=== PATIENT | male | born 1950 | race Caucasian/White ===

== ENCOUNTER → 2018-07-29 14:42 | Outpatient (CLI) | payer MEDICARE, SELFPAY | PROVIDERS: PCP Family Medicine; Visit Provider Family Medicine | DX: E66.9 Obesity, unspecified (principal); H34.8122 Central retinal vein occlusion, left eye, stable; I10 Essential (primary) hypertension; H35.052 Retinal neovascularization, unspecified, left eye; G47.33 Obstructive sleep apnea (adult) (pediatric) | CPT/HCPCS: G0399 ==

== ENCOUNTER 2019-01-01 12:55 | Emergency (ER) | payer MEDICARE, SELFPAY ==
[2019-01-01 13:13] VITALS: BP 149/84; PULSE 83; RESP 20; TEMP 37; O2SAT 97; BMI 28.7
--- NOTE | 2019-01-01 13:16 | XR_ITS ---
XR chest 2V HISTORY: ITS.REASON: SOA ORDERING PHYSICIAN: Aleena Bear APRN PATIENT AGE: 68 years COMPARISON: None FINDINGS: The cardiomediastinal silhouette and pulmonary vascularity are within normal limits. The lungs are clear without infiltrates, suspicious nodules, or pleural effusions. There is an azygos fissure is normal variant No acute bony abnormalities. IMPRESSION: Negative chest, no acute finding
--- NOTE | 2019-01-01 13:53 | HMH.EDUTC ---
[facility] [place]: Bronchitis Disposition: Home, Self-Care Condition on Discharge: Good Instructions: Sinusitis (Alternative Therapy), Sinusitis, Acute Bronchitis, DI for Sinusitis, DI for Acute Bronchitis Additional Instructions: ? Start antibiotic today. Be sure to complete entire prescription even if feeling better ? Monitor temp. Tylenol every 4 hours as needed and / or ibuprofen every 6 hours as needed ( As long as your primary care physician has told you that it ok to take both. For fever/aches/pains ER if no less than 101 despite Tylenol or Motrin ? Humidifier/vaporizer or hot steamy shower ? Inhaler every 4-6 hours as needed like we discussed. If unsure how to use it, ask pharmacist to demonstrate how. Should help open airways and improve cough, wheezing, and shortness of breath ? Mucinex during the day for your cough and cough suppressant only at night. Be sure to drink lots of water. Insurance may not cover a prescriptions for mucinex. Might be cheaper to get 400mg tablets and take 2 tablet in the morning, mid-day and evening with lots of water. *Tessalon Perles will not cause drowsiness but use at bedtime to help stop cough so that you may get some rest. Follow up IMMEDIATELY for new or worsening of symptoms OR no noticeable improvement over the next 48-72 hours. 911 immediately for any life threatening symptoms such as chest pain or difficulty breathing Prescriptions: Albuterol Sulfate [Albuterol HFA Inhaler] 2 puffs IH Q6HP PRN #1 inh PRN Reason: Shortness Of Breath Or Wheezing Fluticasone Propionate [Flonase 50mcg nasal spray 16gm] 2 spr NS DAILY #1 bottle Azithromycin [Z-Tacos 250mg Tab] 250 mg PO UD DOSE PK #6 tab Referrals: Leodan Smith MD [Primary Care Provider] - As needed Medical Decision Making - Kwame Inquiry Pt receiving controlled substance: No Kwame was queried for this patient: No Vital Signs: 01/01/19 13:13 Temperature 98.6 F Temperature Source Oral Pulse Rate [Right Brachial] 83 Respiratory Rate 20 Blood Pressure [Left Arm] 149/84 H Blood Pressure Mean [Left Arm] 105 Blood Pressure Source [Left Arm] Automatic Cuff Blood Pressure Position [Left Arm] Sitting 02 Sat by Pulse Oximetry 97 Oxygen Delivery Method Room Air Orders (Tests/Meds): ED MEDICATIONS Discontinued Medications Generic Name Dose Route Start Last Admin Trade Name Onur PRN Reason Stop Dose Admin Albuterol/Ipratropium 3 ml 01/01/19 13:53 01/01/19 13:59 Duoneb 3ml Neb IH 01/01/19 13:54 3 ml ONCE ONE Administration Methylprednisolone Sodium Succinate 125 mg 01/01/19 13:53 01/01/19 13:59 Solu-Medrol 125mg/2ml Vial IM 01/01/19 13:54 125 mg ONCE ONE Administration - Radiology Data #1 Image(s): Chest Image Reviewed: Yes I have reviewed radiologist's interpretation IMPRESSION: Negative chest, no acute finding - Reevaluation(s) Time: 14:20 Reevaluation #1: Wheezing diminished after neb treatment Patient state that he is breathing much better [facility] [place] - General Stated complaint: SOA Time Seen by Provider: 01/01/19 13:54 Mode of Arrival: Family Vehicle Source of Information: Patient Limitations: No Limitations Description of Symptoms (Recalled from Triage Doc. by RN): C/O SOB. RECENTLY WENT TO [place] AND DIDNT TAKE HIS C PAP. ALSO C/O WHEEZING AND CHEST TIGHTNESS WITH PRODUCTIVE COUGH WITH GREEN SPUTUM HEENT Symptoms (Recalled from RN notes): No Resp Symptoms (Recalled from RN notes): Yes Skin Symptoms (Recalled from RN notes): No MS Symptoms (Recalled from RN notes): No Functional Status (Recalled from RN notes): N/A - History of Present Illness Provider Complaint: Patient state that he recently went to [place] and did not take his Cpap machine States that he started using it again after he got back and about 3 days ago he noticed he was having wheezing, feeling short of breath after coughing, nasal congestion and at times coughing up thick green m
--- NOTE | 2019-01-01 13:59 | ED_ITS ---
[facility] [place]ression: Bronchitis Disposition: Home, Self-Care Condition on Discharge: Good Instructions: Sinusitis (Alternative Therapy), Sinusitis, Acute Bronchitis, DI for Sinusitis, DI for Acute Bronchitis Additional Instructions: ? Start antibiotic today. Be sure to complete entire prescription even if feeling better ? Monitor temp. Tylenol every 4 hours as needed and / or ibuprofen every 6 hours as needed ( As long as your primary care physician has told you that it ok to take both. For fever/aches/pains ER if no less than 101 despite Tylenol or Motrin ? Humidifier/vaporizer or hot steamy shower ? Inhaler every 4-6 hours as needed like we discussed. If unsure how to use it, ask pharmacist to demonstrate how. Should help open airways and improve cough, wheezing, and shortness of breath ? Mucinex during the day for your cough and cough suppressant only at night. Be sure to drink lots of water. Insurance may not cover a prescriptions for mucinex. Might be cheaper to get 400mg tablets and take 2 tablet in the morning, mid-day and evening with lots of water. *Tessalon Perles will not cause drowsiness but use at bedtime to help stop cough so that you may get some rest. Follow up IMMEDIATELY for new or worsening of symptoms OR no noticeable improvement over the next 48-72 hours. 911 immediately for any life threatening symptoms such as chest pain or difficulty breathing Prescriptions: Albuterol Sulfate [Albuterol HFA Inhaler] 2 puffs IH Q6HP PRN #1 inh PRN Reason: Shortness Of Breath Or Wheezing Fluticasone Propionate [Flonase 50mcg nasal spray 16gm] 2 spr NS DAILY #1 bottle Azithromycin [Z-Tacos 250mg Tab] 250 mg PO UD DOSE PK #6 tab Referrals: Leodan Smith MD [Primary Care Provider] - As needed Medical Decision Making - Kwame Inquiry Pt receiving controlled substance: No Kwame was queried for this patient: No Vital Signs: 01/01/19 13:13 Temperature 98.6 F Temperature Source Oral Pulse Rate [Right Brachial] 83 Respiratory Rate 20 Blood Pressure [Left Arm] 149/84 H Blood Pressure Mean [Left Arm] 105 Blood Pressure Source [Left Arm] Automatic Cuff Blood Pressure Position [Left Arm] Sitting 02 Sat by Pulse Oximetry 97 Oxygen Delivery Method Room Air Orders (Tests/Meds): ED MEDICATIONS Discontinued Medications Generic Name Dose Route Start Last Admin Trade Name Onur PRN Reason Stop Dose Admin Albuterol/Ipratropium 3 ml 01/01/19 13:53 01/01/19 13:59 Duoneb 3ml Neb IH 01/01/19 13:54 3 ml ONCE ONE Administration Methylprednisolone Sodium Succinate 125 mg 01/01/19 13:53 01/01/19 13:59 Solu-Medrol 125mg/2ml Vial IM 01/01/19 13:54 125 mg ONCE ONE Administration - Radiology Data #1 Image(s): Chest Image Reviewed: Yes I have reviewed radiologist's interpretation IMPRESSION: Negative chest, no acute finding - Reevaluation(s) Time: 14:20 Reevaluation #1: Wheezing diminished after neb treatment Patient state that he is breathing much better [facility] [place] - General Stated complaint: SOA Time Seen by Provider: 01/01/19 13:54 Mode of Arrival: Family Vehicle Source of Information: Patient Limitations: No Limitations Description of Symptoms (Recalled from Triage Doc. by RN): C/O SOB. RECENTLY WENT TO [place] AND DIDNT TAKE HIS
[2019-01-01 14:26] VITALS: BP 149/84; PULSE 83; RESP 20; TEMP 37; O2SAT 97
== END 2019-01-01 14:27 | disposition home or self-care (01) ==
PROVIDERS: Emergency Provider Nurse Practitioner; PCP Family Medicine
DX: J20.9 Acute bronchitis, unspecified (principal); E78.5 Hyperlipidemia, unspecified; E11.9 Type 2 diabetes mellitus without complications; Z79.84 Long term (current) use of oral hypoglycemic drugs
CPT/HCPCS: G0463; 71046; 96372; 99202

== ENCOUNTER → 2019-12-19 11:44 | Outpatient (CLI) | payer MEDICARE, SELFPAY ==
--- NOTE | 2019-12-19 12:03 | XR_ITS ---
PROCEDURE: XR CHEST AP CLINICAL HISTORY: COVID COMPARISON: Chest from 01/01/2019 FINDINGS: The cardiomediastinal silhouette and pulmonary vascularity are within normal limits. The lungs are clear without infiltrates, suspicious nodules, or pleural effusions. Again noted is an azygos lobe a normal variation. No acute bony abnormalities. IMPRESSION: No acute findings. Dictated by: Dr. Lencho Celis MD 12/19/2019 12:[address] Lencho Celis MD in [place] 12/19/2019 12:45
[2019-12-19 14:13] LABS: Adenovirus,PCR Not Detected (NotDetected); Bordetella Pertussis Not Detected (NotDetected); Chlamydophila Pneumoniae, PCR Not Detected (NotDetected); Coronavirus 229E Not Detected (NotDetected); Coronavirus NL63 Not Detected (NotDetected); Coronavirus OC43 Not Detected (NotDetected); Coronovirus HKU1,PCR Not Detected (NotDetected); Human Metapneumovirus Not Detected (NotDetected); Influenza A, PCR Not Detected (NotDetected); Influenza AH1, 2009 Not Detected (NotDetected); Influenza AH1, PCR Not Detected (NotDetected); Influenza AH3,PCR Not Detected (NotDetected); Influenza B, PCR Not Detected (NotDetected); Mycoplasma Pneumoniae, PCR Not Detected (NotDetected); Parainfluenza 1, PCR Not Detected (NotDetected); Parainfluenza 2, PCR Not Detected (NotDetected); Parainfluenza 3, PCR Not Detected (NotDetected); Parainfluenza 4, PCR Not Detected (NotDetected); Respiratory Syncytial Virus Not Detected (NotDetected); Rhinovirus/Enterovirus Not Detected (NotDetected)
[2019-12-19 14:56] LABS: Basophils # 0.1 K/mm3 (0-0.2); Basophils % 1.6 % (0.1-2.0); Eosinophils # 0.6 K/mm3 (0.0-0.4); Eosinophils % 10.4 % (0.1-12.0); Hemoglobin 14.3 g/dL (14.1-18.0); Lymphocytes # 1.3 K/mm3 (0.7-4.5); Lymphocytes % 21.9 % (10-50); Mean Corpuscular HGB Conc 33.2 g/dL (31.8-35.4); Mean Corpuscular Hemoglobin 30.5 pg (27.0-31.2); Mean Corpuscular Volume 91.9 fl (80-94); Monocytes # 0.5 K/mm3 (0.1-1.0); Monocytes % 8.2 % (1.7-9.3); Neutrophils # 3.4 K/mm3 (1.8-7.8); Neutrophils % 57.9 % (37.0-80.0); Platelet Count 226 K/mm3 (142-424); Red Blood Count 4.68 M/mm3 (4.60-6.20); Red Cell Distribution Width 14.1 % (11.5-17.5); White Blood Count 5.8 K/mm3 (4.8-10.8)
[2019-12-20 16:10] LABS: Covid-19 Nasal PCR Sendout Lex NOT DETECTED
--- NOTE | 2019-12-20 17:33 | PC.NURSE ---
dr. barreto notified of negative covid-19 test results, will notify pt
== END ==
PROVIDERS: PCP Family Medicine; Visit Provider Family Medicine
DX: Z03.818 Encounter for observation for suspected exposure to other biological agents ruled out (principal)
CPT/HCPCS: 71045; 85025; 87486; 87581; 87633; 87798; U0004

== ENCOUNTER 2019-12-23 13:07 | Emergency (ER) | payer MEDICARE, SELFPAY ==
[2019-12-23 13:28] VITALS: BMI 28.7
[2019-12-23 13:29] VITALS: BP 168/85; PULSE 74; RESP 18; TEMP 37; O2SAT 96; BMI 28.7
--- NOTE | 2019-12-23 13:29 | XR_ITS ---
PROCEDURE: XR CHEST 2V Patient Age:69Y CLINICAL HISTORY: COUGH wheezing. Dyspnea. COMPARISON: 12/19/2019 and 01/01/2019 PA and lateral chest the the the the FINDINGS: PA and lateral chest performed and compared to 01/01/2019 CXR PA and lateral. Lungs are well expanded and clear with nothing definitely acute.. Perhaps mild hyperexpansion with slight flattening the diaphragm on lateral view noted.. However no, no significant change compared to December 2018 CXR. The heart is normal in size with normal pulmonary vascularity. The paulo and mediastinal structures satisfactory azygos lobe again noted... No pleural effusion; no pneumothorax evident No acute bony abnormalities. IMPRESSION: No acute findings. Stable chest,. Lungs clear with perhaps minimal hyperexpansion Dictated by: Beni Hernandez MD 12/23/2019 15:42 Electronically signed by Beni Hernandez MD in [place] 12/23/2019 15:42
--- NOTE | 2019-12-23 13:59 | HMH.EDUTC ---
[facility] [place] Clinical Impression: Acute bronchitis Qualifiers: Bronchitis organism: unspecified organism Qualified Code(s): J20.9 - Acute bronchitis, unspecified Disposition: Home, Self-Care Condition on Discharge: Good Instructions: Acute Bronchitis, DI for Acute Bronchitis Additional Instructions: Drink plenty of fluids. Take tylenol or ibuprofen for pain or fever. Take the medications as directed. Follow up with your regular doctor. GO TO THE ER FOR ANY WORSENING SYMPTOMS Don't start the oral steroids until tomorrow, since you had the shot here today. Prescriptions: Promethazine/Dextromethorphan [Promethazine-Dm Syrup] 5 ml PO Q6HP PRN #240 syrup PRN Reason: Cough Transmission Status: [facility] methylPREDNISolone [Medrol] 4 mg PO DIRECTED 6 Days #21 tab.ds.pk Transmission Status: [facility] Benzonatate [Tessalon Perle 100mg Cap] 100 mg PO TIDP PRN #30 cap PRN Reason: Cough Transmission Status: [facility] Azithromycin [Z-Tacos 250mg Tab*] 250 mg PO UD DOSE PK #6 tab Transmission Status: Received by [id number] Referrals: Leodan Smith MD [Primary Care Provider] - Time of Disposition: 14:09 Medical Decision Making - Medical Records Medical records reviewed: No: I reviewed the patient's medical records. - Kwame Inquiry Pt receiving controlled substance: No Vital Signs: 12/23/19 13:29 12/23/19 14:24 Temperature 98.6 F 98.6 F Temperature Source Oral Pulse Rate 74 Pulse Rate [Right Brachial] 74 Respiratory Rate 18 18 Blood Pressure 168/85 H Blood Pressure [Right Arm] 168/85 H Blood Pressure Mean [Right Arm] 112 Blood Pressure Source [Right Arm] Automatic Cuff Blood Pressure Position [Right Arm] Sitting 02 Sat by Pulse Oximetry 96 Oxygen Delivery Method Room Air - Lab Data Lab Results 12/23/19 13:55: POC Glucose 116 H Orders (Tests/Meds): ED MEDICATIONS Discontinued Medications Generic Name Dose Route Start Last Admin Trade Name Freq PRN Reason Stop Dose Admin Ceftriaxone Sodium 1 gm 12/23/19 13:59 12/23/19 14:15 Rocephin 1gm Vial IM 05/23/20 14:00 1 gm ONCE ONE Administration Protocol Lidocaine HCl 0 ml 12/23/19 13:59 12/23/19 14:15 Lidocaine 1% 10ml Mdv IM 12/23/19 14:00 2.1 ml ONCE ONE Administration Methylprednisolone Sodium Succinate 125 mg 12/23/19 13:59 12/23/19 14:15 Solu-Medrol 125mg/2ml Vial IM 12/23/19 14:00 125 mg ONCE ONE Administration - Radiology Data #1 Image(s): Chest Image Reviewed: Yes I reviewed the patient's radiology image, Yes I have reviewed radiologist's interpretation Preliminary Findings: No Infiltrates Seen PROCEDURE: XR CHEST 2V Referring Doctor:NATY Patient Age:69Y CLINICAL HISTORY: COUGH wheezing. Dyspnea. COMPARISON: 12/19/2019 and 01/01/2019 PA and lateral chest the the the the FINDINGS: PA and lateral chest performed and compared to 01/01/2019 CXR PA and lateral. Lungs are well expanded and clear with nothing definitely acute.. Perhaps mild hyperexpansion with slight flattening the diaphragm on lateral view noted.. However no, no significant change compared to December 2018 CXR. The heart is normal in size with normal pulmonary vascularity. The paulo and mediastinal structures satisfactory azygos lobe again noted... No pleural effusion; no pneumothorax evident No acute bony abnormalities. IMPRESSION: No acute findings. Stable chest,. Lungs clear with perhaps minimal hyperexpansion Dictated by: Beni Hernandez MD 12/23/2019 15:42 Electronically signed by Beni Hernandez MD in [place] 12/23/2019 15:42 [facility] [place] - General Stated complaint: had covid test negative 12/18 cough ,little fever Time Seen by Provider: 12/23/19 13:30 Mode of Arrival: Ambulatory Source of Information: Patient Limitations: No Limitations Description of Symptoms
[2019-12-23 14:02] LABS: POC Glucose,Bedside 116 (70-110)
[2019-12-23 14:24] VITALS: BP 168/85; PULSE 74; RESP 18; TEMP 37; O2SAT 96
== END 2019-12-23 14:28 | disposition home or self-care (01) ==
PROVIDERS: Emergency Provider Nurse Practitioner Family; PCP Family Medicine
DX: J20.9 Acute bronchitis, unspecified (principal); E11.9 Type 2 diabetes mellitus without complications; Z79.84 Long term (current) use of oral hypoglycemic drugs; E78.5 Hyperlipidemia, unspecified; E03.9 Hypothyroidism, unspecified
CPT/HCPCS: 71046; 82962; 96372; 99202

== ENCOUNTER → 2020-02-13 10:01 | Outpatient (CLI) | payer MEDICARE, SELFPAY ==
[2020-02-13 10:45] VITALS: PULSE 64; PULSE 66
== END ==
PROVIDERS: PCP Family Medicine; Visit Provider Family Medicine
DX: R06.02 Shortness of breath (principal)
CPT/HCPCS: 94060; 94640

== ENCOUNTER 2021-04-23 15:39 | Emergency (ER) | payer MEDICARE, SELFPAY ==
[2021-04-23 16:06] VITALS: BP 126/79; PULSE 77; RESP 19; TEMP 36.6; O2SAT 98; BMI 31.0
--- NOTE | 2021-04-23 16:40 | HMH.EDUTC ---
[facility] [place] Disposition Clinical Impression: Stye Qualifiers: Laterality: right Eyelid: lower Qualified Code(s): H00.012 - Hordeolum externum right lower eyelid Disposition: Home, Self-Care Condition on Discharge: Good Instructions: Hordeolum, DI for Hordeolum, Doxycycline Additional Instructions: Warm compresses 3-4 times daily on area on eye Take antibiotics as prescribed Follow up with Dr White at [facility] if no improvement or any worsening of symptoms Return if needed Straight to ER if any life threatening symptoms Prescriptions: Doxycycline Monohydrate [Doxycycline [place] 100mg Tab] 100 mg PO BID 7 Days #14 tab Transmission Status: Pending to [facility] Referrals: Leodan Smith MD [Primary Care Provider] - [facility] [Other] Time of Disposition: 17:10 Medical Decision Making - Kwame Inquiry Pt receiving controlled substance: No Kwame was queried for this patient: No Vital Signs: 04/23/21 16:06 Temperature 97.8 F Temperature Source Oral Pulse Rate [Left] 77 Respiratory Rate 19 Blood Pressure [Right Arm] 126/79 Blood Pressure Mean [Right Arm] 94 02 Sat by Pulse Oximetry 98 - Physician Consults Physician Consulted: Dr Jorje White Time: 17:11 Reason -: Opthalmology Eval/Care Comment/Response: Spoke with Dr White about patient and described finding with mild swelling and redness in jaw area and he recommended starting him on Doxy 100mg BID warm compresses and have him follow up in the clinic if no improvement or any worsening of symptoms Medical Decision Narrative: Patient had redness and small area on right lower eyelid area like that seen with stye however patient had some redness with mild redness on cheek area [facility] [place] HPI - General Stated complaint: poss eye inf Time Seen by Provider: 04/23/21 16:40 Mode of Arrival: Ambulatory Source of Information: Patient Limitations: No Limitations Description of Symptoms (Recalled from Triage Doc. by RN): pt c/o R eye pain since yesterday. he believes it is pink eye. HEENT Symptoms (Recalled from RN notes): Yes (R eye pain) Resp Symptoms (Recalled from RN notes): No Skin Symptoms (Recalled from RN notes): No MS Symptoms (Recalled from RN notes): No Functional Status (Recalled from RN notes): na - History of Present Illness Provider Complaint: Patient state that for the last couple of day he has been having redness and itching to right lower eye lid States that family looked at it and wasnt sure if it was a stye or pink eye States that area is sore and feels itchy at times States that this evening it wasnt any better and he wasnt sure if he needed to come here or the eye doctor so he came in - Related Data Home Medications Medication Instructions Recorded Confirmed metformin 500 mg tablet,extended 500 mg PO DAILY 90 Days #90 02/14/18 04/10/21 release 24 hr rosuvastatin 10 mg tablet 10 mg PO HS 90 Days #90 02/14/18 04/10/21 levothyroxine 100 mcg tablet 100 mcg PO DAILY #90 tab 01/31/19 04/10/21 umeclidinium 62.5 mcg-vilanterol ea INHALATION 01/09/21 04/10/21 25 mcg/actuation powdr for inhalation Previous Rx's Medication Instructions Recorded Doxycycline Monohydrate 100 mg PO BID 7 Days #14 tab 04/23/21 [Doxycycline Edmonson 100mg Tab] Allergies Allergy/AdvReac Type Severity Reaction Status Date / Time No Known Allergies Allergy Verified 04/10/21 08:10 - Worker's Comp Is this a Worker's Comp case?: No [facility] History - Hepatitis A Screen Drug use history?: No High risk sexual behaviors?: No History of sexually transmitted infection?: No Currently employed?: No Childcare worker?: No Do you have indoor plumbing?: Yes Do you have electricity?: Yes Attestation statement:: This patient has been screened for Hepatitis A risk factors. I have reviewed the patient's past medical history: Yes Medical History: Reports:: Diabetes Mellitus Type 2, Hyperlipidemia Other Medical History: Report
[2021-04-23 17:13] VITALS: BP 126/79; PULSE 77; RESP 19; TEMP 36.6
== END 2021-04-23 17:14 | disposition home or self-care (01) ==
PROVIDERS: Emergency Provider Nurse Practitioner; PCP Family Medicine
DX: H00.012 Hordeolum externum right lower eyelid (principal); E11.9 Type 2 diabetes mellitus without complications; E78.5 Hyperlipidemia, unspecified; E03.9 Hypothyroidism, unspecified; Z79.899 Other long term (current) drug therapy
CPT/HCPCS: G0463; 99202

== ENCOUNTER 2021-06-10 12:04 | Emergency (ER) | payer MEDICARE, SELFPAY ==
[2021-06-10 12:04] VITALS: BP 138/78; PULSE 91; RESP 19; TEMP 37.7; O2SAT 98; BMI 31.8
[2021-06-10 13:09] LABS: Adenovirus,PCR Not Detected (NotDetected); Bordetella Pertussis Not Detected (NotDetected); Chlamydophila Pneumoniae, PCR Not Detected (NotDetected); Coronavirus 19, PCR Not Detected (NotDetected); Coronavirus 229E Not Detected (NotDetected); Coronavirus NL63 Not Detected (NotDetected); Coronavirus OC43 Not Detected (NotDetected); Coronovirus HKU1,PCR Not Detected (NotDetected); Human Metapneumovirus Not Detected (NotDetected); Influenza A, PCR Not Detected (NotDetected); Influenza AH1, 2009 Not Detected (NotDetected); Influenza AH1, PCR Not Detected (NotDetected); Influenza AH3,PCR Not Detected (NotDetected); Influenza B, PCR Not Detected (NotDetected); Mycoplasma Pneumoniae, PCR Not Detected (NotDetected); Parainfluenza 1, PCR Not Detected (NotDetected); Parainfluenza 2, PCR Not Detected (NotDetected); Parainfluenza 3, PCR Not Detected (NotDetected); Parainfluenza 4, PCR Not Detected (NotDetected); Respiratory Syncytial Virus Not Detected (NotDetected); Rhinovirus/Enterovirus Not Detected (NotDetected)
--- NOTE | 2021-06-10 13:52 | HMH.EDUTC ---
[facility] [place]: Viral syndrome Disposition: Home, Self-Care Condition on Discharge: Good Instructions: DI for Viral Syndrome, DI for COVID-19 (Suspected or Confirmed ), Preventing the Spread of Coronavirus Discharge Instructions Additional Instructions: *Monitor Temp, Over the counter Motrin or Tylenol as directed/as needed Tylenol every 4 hours and Motrin every 6 hours (as long as your family doctor has told you that you can take it) for fever or pain. and straight to ER if unable to lower temp less than 101.0 after medication given *Warm salt water gargles may help to soothe the throat *Throat Lozenges *Warm fluids like tea with honey may help to soothe the throat *Sleep elevated *Humidifier/Vaporizer Follow up IMMEDIATELY for new or worsening symptoms or no Noticeable improvement over the next 48-72 hours. 911 for difficulty breathing or swallowing You were tested for today for COVID19 your test result should be back in the next 24-48 hours, you may check your results on the [facility] portal if you having trouble logging on or checking your result you may call You was given a handout with instructions for Self Quarantine and Self isolation for while you wait on test results and what to do if they are positive If you are positive the Health Dept will be contacting you also Make sure to take your Vitamins Vit. C Vit D and Zinc if you can take them Prescriptions: Benzonatate [Benzonatate 100mg cap] 100 mg PO TID PRN #30 cap PRN Reason: Cough Transmission Status: Pending to [facility] Ondansetron [Zofran 4mg ODT] 4 mg PO TIDP PRN #12 tab PRN Reason: Nausea Transmission Status: Pending to [facility] Referrals: Leodan Smith MD [Primary Care Provider] - As needed Time of Disposition: 14:07 Medical Decision Making - Kwame Inquiry Pt receiving controlled substance: No Kwame was queried for this patient: No Vital Signs: 06/10/21 12:04 Temperature 99.9 F H Temperature Source Oral Pulse Rate [Left Radial] 91 H Respiratory Rate 19 Blood Pressure [Right Arm] 138/78 Blood Pressure Mean [Right Arm] 98 Blood Pressure Source [Right Arm] Automatic Cuff Blood Pressure Position [Right Arm] Sitting 02 Sat by Pulse Oximetry 98 Oxygen Delivery Method Room Air Orders (Tests/Meds): ORDERS Category Date Time Status Full Resp Panel w/COVID ([facility]) Routine Lab 06/10/21 12:50 [place] [facility] [place] - General Stated complaint: fever, vomiting, congestion Time Seen by Provider: 06/10/21 13:52 Mode of Arrival: Ambulatory Source of Information: Patient Limitations: No Limitations Description of Symptoms (Recalled from Triage Doc. by RN): c/o fever, sinus drainage, upset stomach, chills and body aches since yesterday HEENT Symptoms (Recalled from RN notes): Yes Resp Symptoms (Recalled from RN notes): No Skin Symptoms (Recalled from RN notes): No MS Symptoms (Recalled from RN notes): No Functional Status (Recalled from RN notes): na - History of Present Illness Provider Complaint: Patient states that he started feeling bad yesterday States that he was having body aches, chills, nausea, cough and runny nose, cough and over all not feeling well States that he was concerned with flu or COVID so he came in to get tested - Related Data Home Medications Medication Instructions Recorded Confirmed metformin 500 mg tablet,extended 500 mg PO DAILY 90 Days #90 02/14/18 04/10/21 release 24 hr rosuvastatin 10 mg tablet 10 mg PO HS 90 Days #90 02/14/18 04/10/21 levothyroxine 100 mcg tablet 100 mcg PO DAILY #90 tab 01/31/19 04/10/21 umeclidinium 62.5 mcg-vilanterol ea INHALATION 01/09/21 04/10/21 25 mcg/actuation powdr for inhalation Previous Rx's Medication Instructions Recorded Doxycycline Monohydrate 100 mg PO BID 7 Days #14 tab 04/23/21 [Doxycycline [place] 100mg Tab] Benzonatate [Benzonatate 100mg 100 mg PO TID PRN #30 cap 06/10/21 cap] O
[2021-06-10 14:12] VITALS: BP 138/78; PULSE 91; RESP 19; TEMP 37.7; O2SAT 98
== END 2021-06-10 14:17 | disposition home or self-care (01) ==
PROVIDERS: Emergency Provider Nurse Practitioner; PCP Family Medicine
DX: B34.9 Viral infection, unspecified (principal); E03.9 Hypothyroidism, unspecified; E11.9 Type 2 diabetes mellitus without complications; E78.5 Hyperlipidemia, unspecified; Z79.899 Other long term (current) drug therapy
CPT/HCPCS: G0463; 87581; 87632; 87798; 99202; C9803; U0003; U0005

== ENCOUNTER → 2021-07-10 09:59 | Outpatient (CLI) | payer MEDICARE, SELFPAY ==
[2021-07-10 10:59] LABS: Anion Gap 12.6 mEq/L (5-15); Blood Urea Nitrogen 17 mg/dl (9-20); Calcium 9.5 mg/dl (8.4-10.2); Carbon Dioxide 28 mmol/L (22.0-30.0); Chloride 104 mmol/L (98-107); Estimated Glomerular Filt Rate 83 ml/min (>60); GFR (African American) 101 ML/MIN (>60); Glucose 109 mg/dl (74-100); Potassium 4.6 mmoL/L (3.5-5.1); Sodium 140 mmol/L (136-145)
[2021-07-10 19:47] LABS: Hemoglobin A1C 5.7 % (4.0-6.0)
== END ==
PROVIDERS: Visit Provider Family Medicine
DX: R73.01 Impaired fasting glucose (principal)
CPT/HCPCS: 36415; 80048; 83036

== ENCOUNTER → 2022-03-17 08:02 | Outpatient (CLI) | payer MEDICARE, SELFPAY | PROVIDERS: PCP Family Medicine; Visit Provider Internal Medicine Gastroenterology | DX: Z01.812 Encounter for preprocedural laboratory examination (principal); Z20.822 Contact with and (suspected) exposure to COVID-19; Z12.11 Encounter for screening for malignant neoplasm of colon | CPT/HCPCS: C9803; U0003; U0005 ==

== ENCOUNTER 2022-03-19 08:52 | Day surgery (SDC) | payer MEDICARE, SELFPAY ==
[2022-03-16 11:00] VITALS: BMI 31.7
[2022-03-19] VITALS (8 sets, daily range): BP systolic 117–158; BP diastolic 70–96; PULSE 58–87; RESP 18; TEMP 36.1–36.2; O2SAT 96–100
[2022-03-19 09:21] LABS: POC Glucose,Bedside 94 (70-110)
--- NOTE | 2022-03-19 10:00 | P.PN_ITS ---
[facility] Anesthesia Checklist - Patient Identification Patient Identification: Arm Band - Structural Data Admitted From: Home Planned Operative Procedure/s: colonoscopy Consent for Planned Operative Procedure(s) Verified: Yes Verified Documents: Surgical Consent, History and Physical - NPO Status Verified Time NPO: 00:00 - Additional verifications Anesthesia Reactions: No - Airway Assessment C-Spine Mobility Assessed: Yes (mp2) TMJ Mobility Assessed: Yes Dentition: Good Dentition - Neurological Assessment Level of Consciousness: Awake, Alert - Anesthesia Plan Anesthesia Risk discussed: Yes Anesthesia Plan: Verified ASA Class: II Anesthesia Type: MAC [facility] History I have reviewed the patient's past medical history: Yes Medical History: Reports:: Diabetes Mellitus Type 2, Hyperlipidemia Denies:: Cancer, Diabetes Mellitus Type 1, Internal Pacemaker, MRSA, Seizures *Have you ever received a pneumonia vaccine?: Yes *Have you received a flu vaccine this season?: Yes Other Medical History: Reports: Hypothyroidism Anesthesia experience/problems:: nac Laterality Cases: Bilateral: Cataract Other Surgeries: Yes: Cardiac Catheterization, Colonoscopy. No: Pacemaker Amputation: No Fractures: No - *Social History Last grade of school completed: Advanced degree Smoking Status: Former smoker #Yrs smoked (if former smoker): 20 Smoking End Date: 20 years ago Alcohol Intake: current Alcohol Intake Frequency:: 0-2 drinks per day Substance Use Type: denies use *Occupational Status:: retired Housing: house Household Members: spouse *Travel in the last 8 weeks: [place] Family Hx:: Heart Attack
--- NOTE | 2022-03-19 10:23 | [facility].SCOPE ---
- Procedure: Date: 03/19/22 Patient Date of :: 1950 Procedure Performed:: Colonoscopy & bx Indications:: Colon screening Performing Provider:: Erick Montejo MD Referring Provider:: Leodan Smith MD Sedation:: Propofol Procedure:: After placing the patient in the left lateral decubitus position, the colonoscopy was gently inserted into the rectum and under direct visualization advanced to the cecum which was identified by transillumination in the right lower quadrant, identification of the ileocecal valve, appendiceal orifice, and cecal strap. Color, texture, mucosa, and anatomy of the colon were carefully examined with the scope. Findings:: Anal canal: normal Rectum: normal Sigmoid colon: normal without polyps or inflammatory changes, diverticulosis Descending colon: normal without polyps or inflammatory changes, diverticulosis Splenic flexure: normal Transverse colon: normal without polyps or inflammatory changes, small 0.5 cm polyp, removed with forceps Hepatic flexure: normal Ascending colon: normal without polyps or inflammatory changes Cecum: normal Terminal ileum: not visualized Impression: Polyp, transverse colon Diverticulosis Specimens:: Polyp Recommendations:: F/U exam in about 3-5 years due to finding of polyp Complications:: None Estimated blood obtained (mL): 0
== END 2022-03-19 11:25 ==
LOC: OUTP 08:54
PROVIDERS: PCP Family Medicine; Visit Provider Internal Medicine Gastroenterology
PROC: 0DJD8ZZ Inspection of Lower Intestinal Tract, Via Natural or Artificial Opening Endoscopic (ICD-10-PCS; CPT 45378; principal; 2022-03-19 10:00)
DX: Z12.11 Encounter for screening for malignant neoplasm of colon (principal); K63.5 Polyp of colon; E11.9 Type 2 diabetes mellitus without complications; E78.5 Hyperlipidemia, unspecified
CPT/HCPCS: 45380; 82962; 88305

== ENCOUNTER → 2022-06-16 08:23 | Outpatient (POV) | payer MEDICARE, SELFPAY | PROVIDERS: Visit Provider Dermatology | DX: Z00.00 Encounter for general adult medical examination without abnormal findings (principal) ==

== ENCOUNTER 2023-12-01 09:37 | Outpatient (CLI) | payer MEDICARE, SELFPAY ==
--- NOTE | 2023-12-01 09:47 | XR_ITS ---
FINAL REPORT CLINICAL HISTORY: acute cough COMPARISON: None FINDINGS: No acute pulmonary density is evident. There is no evidence of effusion or other pleural disease. The mediastinum has a normal appearance. The cardiac silhouette is unremarkable. IMPRESSION: Unremarkable chest exam. Reviewed, Interpreted and Dictated by Maria Alejandra Crain MD Transcribed by Magaly Bentley Authenticated and [facility]
== END 2023-12-01 23:59 | disposition home or self-care (01) ==
LOC: RAD 09:38
PROVIDERS: PCP Family Medicine; Visit Provider Family Medicine
DX: R05.1 Acute cough (principal)
CPT/HCPCS: 71046

== ENCOUNTER 2024-08-30 14:37 | Outpatient (CLI) | payer MEDICARE, SELFPAY ==
[2024-08-30 14:50] LABS: Coronavirus 19, PCR Not Detected (NotDetected); Influenza A, PCR Not Detected (NotDetected); Influenza B, PCR Not Detected (NotDetected)
== END 2024-08-30 23:59 | disposition home or self-care (01) ==
LOC: LAB 14:43
PROVIDERS: PCP Family Medicine; Visit Provider Physician Assistant
DX: J06.9 Acute upper respiratory infection, unspecified (principal)
CPT/HCPCS: 87636